=== PATIENT | female | born 1975 | race Caucasian/White ===

== ENCOUNTER 2016-12-09 19:32 | Emergency (ER) | payer SELFPAY ==
[2016-12-09 19:39] VITALS: PULSE 90; TEMP 98.2
--- NOTE | 2016-12-09 20:01 | EDPHY ---
H & P Stated Complaint: R foot lac HPI/ROS: CHIEF COMPLAINT: Laceration HISTORY OF PRESENT ILLNESS: Patient complains of laceration to the right foot that happened within the past 30 minutes. She was cooking in her kitchen when she dropped a ceramic plate that shattered, causing laceration. She notes a large amount of bleeding from the area. She applied pressure in this reportedly stop the bleeding. She has no injury elsewhere. She has difficulty with walking due to pain with the laceration is. She is not taking blood thinners. She has not ever received a tetanus vaccination. There are no other modifying factors or associated complaints. TIME OF INJURY: 30 minutes prior to arrival TETANUS STATUS: Never vaccinated REVIEW OF SYSTEMS: Ten systems reviewed and are negative unless otherwise noted in the HPI EXAMINATION General Appearance: Alert, no distress Head: normocephalic, atraumatic Cardiovascular: Pulses normal throughout. Symmetric DP pulses at 2+. Symmetric PT pulses 2+. Brisk cap refill Neurological: A&O, sensory symmetric, strength symmetric. No foot drop. Strength is 5/5 in both feet. Normal proprioception of the great toe Skin: Warm and dry, no rash. There is a 1 cm stellate laceration on the right dorsal surface of the foot-ankle juncture. No obvious foreign body. No bleeding noted. Neurovascular intact distally. Extremities: Tenderness over the area of laceration. Difficulty ambulating due to this. Range of motion is intact but painful right ankle. DIFFERENTIAL DIAGNOSES: Including but not limited to laceration, laceration complicated, laceration with foreign body, laceration with tendon injury MDM: 7:55 p.m. Laceration to the dorsum of the right ankle, laterally. No obvious foreign body by my examination. I have ordered an x-ray to rule out foreign body as this was caused by a ceramic plate shattered. I have administered local anesthetic with good anesthesia. No complication. She is neurovascular intact with no motor sensory deficits. There is excellent blood flow with symmetric DP and PT pulses are 2+. 8:34 p.m. X-ray as interpreted by me reveals a possible small radiopaque foreign body. I will explore the wound with a sterile glove and proceed with copious irrigation. 8:45 p.m. Notified by radiologist Dr. Ozuna. There is a small radiopaque body that could be a foreign body. I will explore the wound with a sterile glove. 9:00 p.m. I have explored the entire wound bed with sterile gloves. I do not appreciate any foreign body. There is no communication with the extensor tendons, thus this is unlikely to be a foreign body. Proceed with copious irrigation and closure. 9:29 p.m. Wound has been closed. I do not appreciate any presence of foreign body. Wound care discussed. Patient will provide crutches for the next 1-2 days for for comfort. She is here from [place] or again will follow up with her physician back in or again in 7-10 days for suture removal. Return here for any signs of infection as discussed. She is comfortable with this plan and discharged home stable condition PROCEDURE: Laceration repair Consent: Verbal Location: Right anterolateral aspect at the junction of the foot and ankle Length of repair: 1 cm, stellate Complexity: Simple Layer involvement: Single Anesthesia: Local, 1% lidocaine with epinephrine, 5 mL Irrigation: Extensive Debridement: Minimal Procedure description: Following good anesthesia, the wound was copiously irrigated. Wound bed was explored and there is no foreign body noted. Wound borders were approximated well with good hemostasis. There was 1 a head that did have a jagged line to it. This was trimmed with minimal excisional debridement. Tolerated well without complication. Suture/Staple material: 5-0 Ethilon, 6 simple interrupted sutures Wound care: Routine as discussed Suture/Staple removal: 7-10 Days SUTURE STAPLE REMOVAL: 7-10 days ED Precautions: Worsening pain. Erythema, edema, cyanosis, pallor, paresthesia or anesthesia. SUPERVISION: This patient was independently evaluated without direct examination by the attending physician. Case was discussed with attending physician. Source: Patient, Family Exam Limitations: No limitations - Personal History LMP (Females 10-55): 15-21 Days Ago Current Tetanus/Diphtheria Vaccine: Unsure Current Tetanus Diphtheria and Acellular Pertussis (TDAP): Unsure - Medical/Surgical History Hx Asthma: No Hx Chronic Respiratory Disease: No Hx Diabetes: No Hx Cardiac Disease: No Hx Renal Disease: No Hx Cirrhosis: No Hx Alcoholism: No Hx HIV/AIDS: No Hx Splenectomy or Spleen Trauma: No Other PMH: denies - Social History Smoking Status: Former smoker Constitutional: Initial Vital Signs Temperature (C) 98.2 F 12/09/16 19:37 Heart Rate 90 12/09/16 19:37 Respiratory Rate 16 12/09/16 19:37 Blood Pressure 122/87 H 12/09/16 19:37 O2 Sat (%) 99 12/09/16 19:37 O2 Delivery Mode Room Air Allergies/Adverse Reactions: No Known Allergies Allergy (Unverified 12/09/16 19:36) Home Medications: Medication Instructions Recorded Cephalexin [Keflex (*)] 500 mg PO TID #21 cap 12/09/16 Medical Decision Making - Diagnostics Imaging Results: Imaging Impressions Ankle X-Ray 12/09/16 19:56 Impression: 1. Negative for acute osseous abnormality. 2. A radiopaque foreign body is suspected. Results called and discussed with Nik Roberts on 12/09/2016 at 20:49 - Data Points Medications Given: Discontinued Medications Cephalexin (Keflex 500 Mg Prepack#4) 1 btl TAKEHOME EDNOW ONE PRN Reason: Protocol Stop: 12/09/16 21:30 Last Admin: 12/09/16 21:43 Dose: 1 btl Diphtheria/Tetanus/Acell Pertussis (Boostrix) 0.5 ml IM .ONCE ONE Stop: 12/09/16 20:03 Last Admin: 12/09/16 20:26 Dose: 0.5 ml Departure - Departure Disposition: Home, Routine, Self-Care Clinical Impression: Laceration of foot Qualifiers: Encounter type: initial encounter Laterality: right Qualified Code(s): S91.311A - Laceration without foreign body, right foot, initial encounter Condition: Good Instructions: Cephalexin (By mouth), Care For Your Stitches (ED), Laceration ( ED) Additional Instructions: 1. Keep the wound clean, dry and covered 2. Weightbearing as tolerated with light activity 3. Keflex by mouth 3 times daily until gone 4. Follow up with physician in [place] in 7-10 days for suture removal Referrals: NONE *PRIMARY CARE P,. [Primary Care Provider] - As per Instructions MITRA BEDOLLA [Medical Doctor] - As per Instructions Prescriptions: Cephalexin [Keflex (*)] 500 mg PO TID #21 cap
[2016-12-09] MEDS ORDERED: TDAP ADULT 0.5 ML INJ (BOOSTRIX) IM ONE (20:02)
[2016-12-09] MEDS ORDERED: CEPHALEXIN 500MG PREPACK#4 BTL TAKEHOME ONE (21:29)
[2016-12-09 22:03] VITALS: BP 120/82; RESP 18; O2SAT 95
== END 2016-12-09 22:02 | disposition home or self-care (01) ==
PROC: 0HQMXZZ Repair Right Foot Skin, External Approach (ICD-10-PCS; principal; 2016-12-09)
DX: S91.311A Laceration without foreign body, right foot, initial encounter (principal); Z23 Encounter for immunization; Z87.891 Personal history of nicotine dependence; W20.8XXA Other cause of strike by thrown, projected or falling object, initial encounter; Y92.000 Kitchen of unspecified non-institutional (private) residence as the place of occurrence of the external cause; Y99.8 Other external cause status; Y93.G9 Activity, other involving cooking and grilling